=== PATIENT | female | born 1995 | race Caucasian/White ===

== ENCOUNTER 2017-09-28 13:30 | Emergency (ER) | payer OTHER ==
[2017-09-28 14:00] VITALS: BP 114/60
[2017-09-28] MEDS ORDERED: ACETAMINOPHEN 325 MG TABLET PO ONE (15:59)
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
== END 2017-09-28 17:02 | disposition home or self-care (01) ==
LOC: ER 13:30
DX: S16.1XXA Strain of muscle, fascia and tendon at neck level, initial encounter (principal); M54.2 Cervicalgia; R51 Headache; V49.40XA Driver injured in collision with unspecified motor vehicles in traffic accident, initial encounter
CPT/HCPCS: 99284; 70450; 72125; L0120